=== PATIENT | male | born 1950 | race Caucasian/White ===

== ENCOUNTER 2020-11-22 21:43 | Emergency (ER) | payer MEDICARE, MEDICAID ==
[~2020-11-22] VITALS: Ht 185.4 cm; Wt 94.3 kg
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
[2020-11-22] MEDS ORDERED: DIAZEPAM 5 MG TABLET ONE (22:30)
[2020-11-22] MEDS ORDERED: LIDODERM 5% PATCH TD ONE ×2 (22:30)
[2020-11-22] MEDS ORDERED: KETOROLAC 30 MG/1 ML IM ONE (22:30)
[2020-11-22] MEDS ORDERED: KETOROLAC 30 MG/1 ML ONE (22:30)
[2020-11-22] MEDS ORDERED: DIAZEPAM 5 MG TABLET PO ONE (22:30)
--- NOTE | 2020-11-22 22:39 | NUR ---
PT MEDICATED FOR PAIN AND GIVEN WARM BLANKET
--- NOTE | 2020-11-22 23:02 | NUR ---
PT TO IMAGING
--- NOTE | 2020-11-23 01:03 | NUR ---
Break RN: patient discharged with prescription and instruction. verbalized understanding.
[2020-11-23 01:20] VITALS: BP 151/81
== END 2020-11-23 01:23 | disposition home or self-care (01) ==
LOC: ED 11-23 00:12
DX: S16.1XXA Strain of muscle, fascia and tendon at neck level, initial encounter (principal); M47.812 Spondylosis without myelopathy or radiculopathy, cervical region; F17.210 Nicotine dependence, cigarettes, uncomplicated; Z72.9 Problem related to lifestyle, unspecified; V49.49XA Driver injured in collision with other motor vehicles in traffic accident, initial encounter; Y93.89 Activity, other specified; Y92.488 Other paved roadways as the place of occurrence of the external cause; Y99.8 Other external cause status
CPT/HCPCS: 72125; 96372; 99284; J1885

== ENCOUNTER 2021-04-02 02:27 | Emergency (ER) | payer MEDICARE, MEDICAID ==
[~2021-04-02] VITALS: Ht 182.9 cm; Wt 89.1 kg
--- NOTE | 2021-04-02 04:28 | NUR ---
ASSESSMENT MADE. CHART UP FOR MD TO SEE.
--- NOTE | 2021-04-02 05:25 | NUR ---
ERP AT BEDSIDE.
--- NOTE | 2021-04-02 05:53 | NUR ---
patient discharged with prescriptions and instruction. verbalized understanding. patient states " I dont want to be rushed" and went back to sleep. Security notified for assistance.
[2021-04-02 05:56] VITALS: BP 147/83
== END 2021-04-02 05:58 | disposition home or self-care (01) ==
LOC: ED 05:52
DX: G62.9 Polyneuropathy, unspecified (principal); Z88.0 Allergy status to penicillin; F17.200 Nicotine dependence, unspecified, uncomplicated
CPT/HCPCS: 99283

== ENCOUNTER 2021-04-09 08:13 | Emergency (ER) | payer MEDICARE, MEDICAID ==
[~2021-04-09] VITALS: Ht 182.9 cm; Wt 85.0 kg
--- NOTE | 2021-04-09 08:49 | NUR ---
pt to CT at this time.
[2021-04-09] MEDS ORDERED: PREGABALIN 100 MG CAPSULE PO ONE (09:00)
[2021-04-09] MEDS ORDERED: DIPH,PERTUSS(ACELL),TET VAC/PF 0.5 ML IM-VACC ONE (09:00)
--- NOTE | 2021-04-09 09:06 | NUR ---
REPORT GIVEN TO GALILEA VILLALTA WHO IS ASSUMING CARE.
--- NOTE | 2021-04-09 09:14 | NUR ---
Pt resting in bed, all light in reach.
[2021-04-09 09:55] VITALS: BP 132/76
--- NOTE | 2021-04-09 10:27 | NUR ---
SPRAY D[employer] OPERATOR HELPER AT BEDSIDE FOR WOUD CARE
--- NOTE | 2021-04-09 10:46 | NUR ---
ERMD AT BEDSIDE TO DISCUSS POC
--- NOTE | 2021-04-09 11:05 | NUR ---
dISCHARGE INSTRUCTIONS REVIEWED
== END 2021-04-09 11:27 | disposition home or self-care (01) ==
LOC: ED 09:23
DX: S09.90XA Unspecified injury of head, initial encounter (principal); Z76.0 Encounter for issue of repeat prescription; F17.200 Nicotine dependence, unspecified, uncomplicated; Y08.89XA Assault by other specified means, initial encounter; Y93.89 Activity, other specified; Y92.410 Unspecified street and highway as the place of occurrence of the external cause; Y99.8 Other external cause status
CPT/HCPCS: 70450; 99284

== ENCOUNTER 2021-04-09 21:39 | Emergency (ER) | payer MEDICAID, MEDICARE ==
[~2021-04-09] VITALS: Ht 182.9 cm; Wt 92.7 kg
[2021-04-09 21:50] VITALS: BP 115/74
[2021-04-09] MEDS ORDERED: KETOROLAC 30 MG/1 ML IM ONE (23:00)
[2021-04-09] MEDS ORDERED: ACETAMINOPHEN 500 MG TABLET PO ONE ×2 (23:00)
[2021-04-09] MEDS ORDERED: PREGABALIN 25 MG CAPSULE PO ONE (23:00)
[2021-04-09] MEDS ORDERED: PREGABALIN 75 MG CAPSULE PO ONE (23:00)
[2021-04-09] MEDS ORDERED: ACETAMINOPHEN 500 MG TABLET ONE (23:31)
[2021-04-09] MEDS ORDERED: KETOROLAC 30 MG/1 ML ONE (23:31)
== END 2021-04-09 23:38 | disposition home or self-care (01) ==
LOC: ED 23:15
DX: G89.4 Chronic pain syndrome (principal); G62.9 Polyneuropathy, unspecified
CPT/HCPCS: 99283

== ENCOUNTER 2021-04-16 18:46 | Emergency (ER) | payer MEDICAID ==
[~2021-04-16] VITALS: Ht 182.9 cm; Wt 85.0 kg
--- NOTE | 2021-04-16 21:40 | NUR ---
PT AMBULATED TO ROOM, STATES HE'S OUT OF HIS MEDICATIONS CAUSE THEYRE VERY EXPENSIVE, AND HAS GENERAL PAIN COMPLAINT TO WHOLE BODY.
--- NOTE | 2021-04-16 21:53 | NUR ---
MD TO BEDSIDE TO EVAL PT, AND ORDERED LAB WORK. PT IN NO ACUTE DISTRESS, SITTING IN [facility].
[2021-04-16 22:28] LABS: BASOPHILS % (AUTO) 1 % (0-1); EOSINOPHILS % (AUTO) 5 % (1-7); LYMPHOCYTES % (AUTO) 26 % (22-44); MEAN CORPUSCULAR HEMOGLOBIN 31.5 pg (27.5-34.5); MEAN CORPUSCULAR HGB CONC 34.4 g/dL (33.2-36.2); MEAN PLATELET VOLUME 6.8 fL (7.4-10.4); MONOCYTES % (AUTO) 15 % (2-9); NEUTROPHILS % (AUTO) 54 % (42-75); PLATELET COUNT 262 x10^3/uL (130-400); RED BLOOD COUNT 4.15 x10^6/uL (4.38-5.82); RED CELL DISTRIBUTION WIDTH 13.7 % (9.4-14.8)
[2021-04-16 22:30] LABS: MD NO
[2021-04-16 22:36] LABS: ALANINE AMINOTRANSFERASE 69 U/L (12-78); ANION GAP 8 mmol/L (5-15); CALCIUM 7.7 mg/dL (8.5-10.1); CHLORIDE 104 mmol/L (98-107); CREATININE 0.93 mg/dL (0.7-1.3)
[2021-04-16 22:39] LABS: ALKALINE PHOSPHATASE 109 U/L (45-117); BILIRUBIN,TOTAL 0.3 mg/dL (0.2-1.0); TOTAL PROTEIN 6.5 g/dL (6.4-8.2)
--- NOTE | 2021-04-16 23:29 | NUR ---
PT TO BE DISCHARGED, AND MD TO BEDSIDE TO SPEAK WITH PT.
[2021-04-16] MEDS ORDERED: KETOROLAC 60 MG/2 ML IM ONE (23:30)
[2021-04-16] MEDS ORDERED: KETOROLAC 60 MG/2 ML ONE (23:35)
--- NOTE | 2021-04-16 23:40 | NUR ---
RN WENT TO GIVE MEDS TO PT FOR PAIN, AND PT REFUSED THE TORADOL AND STATED HE JUST WANTED HIS LYRICA DOSE FOR TONIGHT, BECAUSE THAT WILL TAKE CARE OF IT. MD UPDATED AND MED ORDERED. PT TO BE DISCHARGED AFTER. TORADOL WASTED IN MED ROOM.
[2021-04-16] MEDS ORDERED: PREGABALIN 50 MG CAP PO ONE (23:45)
--- NOTE | 2021-04-16 23:53 | NUR ---
MEDICATION ADMINISTERED AND PT GIVEN F/U AND D/C INSTRUCTIONS AND PRESCRIPTIONS. PT ASKED IF HE COULD MAKE A COPY OF THE PRESCRIPTION AND TAKE IT TO [place]. RN TOLD PT THAT THEY ARE UNAWARE OF THAT, AND THAT HE SHOULD JUST GO TO A LOCAL PHARMACY AND GET IT THERE.
[2021-04-16 23:54] VITALS: BP 138/85
[2021-04-17] MEDS ORDERED: PREGABALIN 25 MG CAPSULE PO ONE
== END 2021-04-17 00:25 | disposition home or self-care (01) ==
LOC: ED 20:42
DX: M25.511 Pain in right shoulder (principal); M25.512 Pain in left shoulder; M54.9 Dorsalgia, unspecified; G62.9 Polyneuropathy, unspecified; Z76.0 Encounter for issue of repeat prescription; R00.0 Tachycardia, unspecified
CPT/HCPCS: 36415; 80053; 80320; 85025; 93005; 99284; G0480

== ENCOUNTER 2021-04-18 12:36 | Emergency (ER) | payer MEDICAID ==
[~2021-04-18] VITALS: Ht 182.9 cm; Wt 90.0 kg
[2021-04-18 12:58] VITALS: BP 152/83
== END 2021-04-18 13:56 | disposition home or self-care (01) ==
LOC: ED 12:52
DX: G62.9 Polyneuropathy, unspecified (principal); Z76.0 Encounter for issue of repeat prescription; F17.210 Nicotine dependence, cigarettes, uncomplicated
CPT/HCPCS: 99281